=== PATIENT | male | born 1950 | race Caucasian/White ===

== ENCOUNTER 2017-08-13 09:58 | Day surgery (SDC) | payer OTHER ==
[~2017-08-13] VITALS: Ht 175.3 cm; Wt 129.7 kg
[2017-08-13 10:32] VITALS: BP 128/67
[2017-08-13 14:20] VITALS: BP 131/77
[2017-08-13 14:50] VITALS: BP 136/70
[2017-08-13 15:20] VITALS: BP 131/77
[2017-08-13 15:50] VITALS: BP 146/65
== END 2017-08-13 15:50 | disposition home or self-care (01) ==
LOC: CT 09:58
PROC: 0JB93ZX Excision of Buttock Subcutaneous Tissue and Fascia, Percutaneous Approach, Diagnostic (ICD-10-PCS; principal; 2017-08-13)
DX: R22.2 Localized swelling, mass and lump, trunk (principal); Z95.1 Presence of aortocoronary bypass graft; Z95.5 Presence of coronary angioplasty implant and graft; Z98.42 Cataract extraction status, left eye; Z98.41 Cataract extraction status, right eye; Z96.1 Presence of intraocular lens
CPT/HCPCS: 49180; C1894; J2001; J3010